=== PATIENT | male | born 1985 | race Caucasian/White ===

== ENCOUNTER 2018-08-26 03:37 | Emergency (ER) | payer SELFPAY ==
[~2018-08-26] VITALS: Ht 180.3 cm; Wt 82.1 kg
[2018-08-26 03:40] VITALS: BP_SYST 150
--- NOTE | 2018-08-26 03:40 | NUR ---
Patient to ER H1 to gown for evaluation. Side rails up.
--- NOTE | 2018-08-26 03:47 | NUR ---
ALBA Watkins at bedside examining patient.
--- NOTE | 2018-08-26 03:52 | NUR ---
patient refused pain medication stating, "I'm not in pain. I don't take pharmaceutical drugs."
[2018-08-26 03:58] VITALS: BP_SYST 150
--- NOTE | 2018-08-26 03:58 | NUR ---
Patient given written and verbal discharge instructions and verbalizes understanding. ER MD discussed with patient the results and treatment provided. Patient in stable condition. ID arm band removed. No Rx given. Patient educated on pain management and to follow up with PMD. Pain Scale 0. Opportunity for questions provided and answered. Medication side effect fact sheet provided. Accompanied by CHP
[2018-08-26] MEDS ORDERED: IBUPROFEN 600 MG TABLET PO ONE (04:00)
== END 2018-08-26 03:58 ==
LOC: SED 03:37
DX: F10.99 Alcohol use, unspecified with unspecified alcohol-induced disorder (principal); M79.10 Myalgia, unspecified site; V43.52XA Car driver injured in collision with other type car in traffic accident, initial encounter; Y93.89 Activity, other specified; Y92.410 Unspecified street and highway as the place of occurrence of the external cause; Y99.8 Other external cause status
CPT/HCPCS: 99283